=== PATIENT | male | born 1965 | race Caucasian/White ===

== ENCOUNTER 2016-10-26 18:17 | Emergency (ER) | payer OTHER ==
[~2016-10-26] VITALS: Ht 170.2 cm; Wt 64.5 kg
[2016-10-26 18:25] VITALS: Ht 170.2 cm; Wt 64.5 kg
[2016-10-26] MEDS ORDERED: IBUP-1542 PO (21:10)
[2016-10-26 21:16] VITALS: BP 115/68; PULSE 68; RESP 18; TEMP 99.6
--- NOTE | 2016-10-26 23:32 | ERD ---
ER Documentation Chief Complaint Date/Time DATE: 10/26/16 TIME: 23:28 Chief Complaint cough x 2 days HPI 51-year-old male with no significant past medical history presenting with 1 day of fever and nonproductive cough. He denies any associated facial pain, nausea , vomiting, chest pain, shortness of breath, or abdominal pain. He was just concerned because he has never had a fever with an infection before. He went to an urgent care today and was given cough medicine. However he was concerned so he came today to the ER for reevaluation. ROS All systems reviewed and are negative except as per history of present illness. Medications Home Meds Active Scripts Ibuprofen* (Motrin*) 600 Mg Tab, 600 MG PO Q6H Y for FEVER GREATER THAN 100.6, # 30 TAB Prov:JOSUÉ SEAY MD 10/26/16 Allergies Allergies: Coded Allergies: No Known Allergy (Unverified , 10/26/16) PMhx/Soc Medical and Surgical Hx: pt denies Medical Hx, pt denies Surgical Hx History of Surgery: No Anesthesia Reaction: No Hx Neurological Disorder: No Hx Respiratory Disorders: No Hx Cardiac Disorders: No Hx Psychiatric Problems: No Hx Miscellaneous Medical Probl: No Hx Alcohol Use: No Hx Substance Use: No Hx Tobacco Use: No Smoking Status: Current every day smoker FmHx Family History: No diabetes Physical Exam Vitals Vital Signs Date Time Temp Pulse Resp B/P Pulse Ox O2 Delivery O2 Flow Rate FiO2 10/26/16 21:16 99.6 68 18 115/68 99 Room Air High Flow 10/26/16 18:25 101.0 98 20 118/74 98 Physical Exam Const: Well-appearing, nontoxic, no apparent distress Head: Atraumatic Eyes: Normal Conjunctiva, PERRLA, EOMI ENT: Normal External Ears, Nose and Mouth. Posterior oropharynx normal Neck: Full range of motion. No lymphadenopathy. No meningismus. Resp: Clear to auscultation bilaterally, no wheezing, rales, rhonchi Cardio: Regular rate and rhythm, no murmurs Abd: Soft, non tender, non distended. Normal bowel sounds Skin: No petechiae or rashes Back: No midline or flank tenderness Ext: No cyanosis, or edema Neur: Awake and alert Psych: Normal Mood and Affect Procedures/MDM Patient is presenting with fever and cough, likely viral in etiology. I have a low suspicion for bacterial bronchitis or pneumonia. I do not suspect pulmonary embolism, acute coronary syndrome, or CHF. His vitals were notable for fever and his tachycardia is likely secondary to his fever. However the patient is completely well-appearing and in no distress. I believe he is stable for continued outpatient follow-up with his primary care doctor. Return precautions were discussed. Ibuprofen prescription was given for fevers and pain. Patient was discharged in a stable condition. Departure Diagnosis: Primary Impression: Cough Additional Impression: Fever Fever type: unspecified Qualified Code: R50.9 - Fever, unspecified fever cause Condition: Stable Patient Instructions: Febrile Illness, Uncertain Cause (Adult), Viral Syndrome (Adult) Additional Instructions: Return to the ER for any worsening symptoms or any further concerns. JOSUÉ SEAY MD Oct 26, 2016 23:32
== END 2016-10-26 21:20 | disposition home or self-care (01) ==
LOC: FTE 18:17
DX: R05 Cough (principal); R50.9 Fever, unspecified; F17.210 Nicotine dependence, cigarettes, uncomplicated
CPT/HCPCS: 99283